=== PATIENT | male | born 1960 | race Caucasian/White ===

== ENCOUNTER 2021-11-05 15:28 | Emergency (ER) | payer SELFPAY ==
[~2021-11-05] VITALS: Ht 177.8 cm; Wt 90.7 kg
[2021-11-05 15:36] VITALS: BP_SYST 130
--- NOTE | 2021-11-05 15:38 | NUR ---
Triaged pt and pt on ambulance gurney until bed becomes available.
--- NOTE | 2021-11-05 15:45 | NUR ---
PER MEDICS, PT WAS MISSING FOR APPROX 3 DAYS AND EMPLOYER DID A WELLNESS CHECK AND PT WAS FOUND PASSED OUT IN HOME WITH SURROUNDING ALCOHOL BOTTLES.
[2021-11-05 17:49] LABS: BASOPHILS % (AUTO) 0.6 % (0.0-2.0); EOSINOPHILS % (AUTO) 0.7 % (0.0-4.0); HEMATOCRIT 43.8 % (36-54); LYMPHOCYTES # (AUTO) 1.6 K/uL (1.0-5.5); MEAN CORPUSCULAR VOLUME 93 fL (79.0-98.0); MONOCYTES # (AUTO) 0.5 K/uL (0.0-1.0); MONOCYTES % (AUTO) 9.3 % (1.7-9.3); NEUTROPHILS # (AUTO) 3.6 K/uL (1.8-7.7); NEUTROPHILS % (AUTO) 61.4 % (40.0-70.0); PLATELET COUNT (AUTO) 239 K/uL (130-430); RED CELL DISTRIBUTION WIDTH 13.5 % (9.0-15.0); WHITE BLOOD COUNT (AUTO) 5.8 K/uL (4.8-10.8)
[2021-11-05 18:01] LABS: CALCIUM 8.8 mg/dL (8.4-11.0); CREATININE 0.96 mg/dL (0.55-1.30); POTASSIUM 3.6 mmol/L (3.5-5.1)
[2021-11-05 18:16] LABS: TOTAL BILIRUBIN 0.7 mg/dL (0.0-1.0)
[2021-11-05 18:58] LABS: CKMB RELATIVE INDEX 0.7 (0.0-2.9); CREATINE KINASE MB 5.8 ng/mL (0-3.6)
--- NOTE | 2021-11-05 19:25 | NUR ---
PATIENT EATING DINNER WITHOUT ISSUE.
--- NOTE | 2021-11-05 20:45 | NUR ---
Patient given written and verbal discharge instructions and verbalizes understanding. ER MD discussed with patient the results and treatment provided. Patient in stable condition. ID arm band removed. IV catheter removed intact and dressing applied, no active bleeding. Rx of N/A given. Patient educated on pain management and to follow up with PMD. Pain Scale . Opportunity for questions provided and answered. Medication side effect fact sheet provided.
[2021-11-05 23:38] LABS: MEAN CORPUSCULAR HEMOGLOBIN 33 pg (27-31); MEAN CORPUSCULAR HGB CONC 34 % (32-36)
== END 2021-11-05 20:44 | disposition home or self-care (01) ==
LOC: SED 15:28
DX: F10.10 Alcohol abuse, uncomplicated (principal); F10.129 Alcohol abuse with intoxication, unspecified; Z79.899 Other long term (current) drug therapy; Y90.6 Blood alcohol level of 120-199 mg/100 ml
CPT/HCPCS: 99283; 80053; 82140; 82550; 82553; 85025; 36415; G0482